=== PATIENT | male | born 1960 | race African-American/Black ===

== ENCOUNTER → 2018-04-23 | Outpatient (REF) | END | disposition home or self-care (01) | DRG 74 | LOC: LAB 07:21 | PROVIDERS: ATTEND Nurse Practitioner Family | DX: E11.42 Type 2 diabetes mellitus with diabetic polyneuropathy (principal); I10 Essential (primary) hypertension ==

== ENCOUNTER → 2018-04-29 | Outpatient (REF) | payer MEDICARE | END | disposition home or self-care (01) | LOC: DI 10:24 | PROVIDERS: ATTEND Internal Medicine | DX: M54.2 Cervicalgia (principal) ==